=== PATIENT | female | born 2000 | race Caucasian/White ===

== ENCOUNTER → 2020-01-12 | Outpatient (CLI) | payer BC ==
[~2020-01-12] MED LIST: ACHD5005 PO; AGM875T PO
--- NOTE | 2020-01-12 11:31 | Diagnostic Imaging Report ---
INDICATION: Finger pain. COMPARISON: None available. TECHNIQUE: Three radiographs centered upon the right hand third digit dated January 12, 2020. FINDINGS: No acute fracture or dislocation. No destructive osseous process. Joint spaces are well-maintained. Carpal alignment is well-maintained. No suspicious radiopaque foreign body. The third DIP joint remains flexed on the lateral radiograph. IMPRESSION: No acute osseous abnormality. Dictated by: Dictated on workstation # [id number]
== END ==
LOC: RAD FS 10:54
PROVIDERS: ATTEND Nurse Practitioner
DX: M79.644 Pain in right finger(s) (principal)
CPT/HCPCS: 73140